=== PATIENT | female | born 1960 | race Caucasian/White ===

== ENCOUNTER 2016-09-28 11:04 | Inpatient (IN) ==
[2016-09-28] MEDS ORDERED: NORCO-7.5 PO PRN (20:26)
[2016-09-28 20:55] LABS: MANUAL DIFF NEEDED? NO
[2016-09-28 20:58] LABS: BASO% 0.6 % (0.0-0.8); EOS# 0.21 X1000 (0.0-0.7); EOS% 2.5 % (0.0-10.0); HEMATOCRIT 40.4 % (37.0-47.0); LYMPH# 2.88 X1000 (1.2-3.4); LYMPH% 33.6 % (20.5-51.1); MCHC 34.7 g/dL (33-37); MCV 89.4 FL (81-99); MONO# 0.82 X1000 (0.11-0.59); MONO% 9.6 % (1.7-9.3); MPV 9.8 FL (7.4-10.4); NEUT% 53.7 % (42.2-75.2); PLT 351 X1000 (130-400); RBC 4.52 XMIL (4.2-5.4)
[2016-09-28 21:16] LABS: AGAP 16; BUN 16 mg/dL (8-22); CALCIUM 9.5 mg/dL (8.8-10.2); CHLORIDE 99 mmol/L (98-107); COSMO 284; POTASSIUM 3.2 mmol/L (3.5-5.1); SODIUM 141 mmol/L (136-145); TCO2 26 mmol/L (25-35)
[2016-09-28 21:18] LABS: CK PROFILE 200 U/L (24-173)
--- NOTE | 2016-09-28 21:22 | Diag Imaging Result Doc PS360 ---
EXAM: CHEST-2 VIEWS INDICATION: SOB TECHNIQUE: PA and lateral COMPARISON: 03/22/2016 FINDINGS: The lungs are grossly clear. There is no discrete pleural fluid collection. The cardiomediastinal silhouette and central vasculature are grossly unremarkable. There are stable metallic clips projecting over the left chest wall. IMPRESSION: No evidence of acute pathology. Electronically signed by Rinku Carias 09/28/2016 9:20 PM
[2016-09-28 21:41] LABS: CK INDEX 1.4 (0.0-2.5); CK-MB 2.85 ng/mL (0.0-5.0)
[2016-09-28] MEDS ORDERED: KLOR-CON PO ONE (22:07)
[2016-09-28] MEDS ORDERED: LIPITOR PO ONE (22:07)
[2016-09-28] MEDS ORDERED: TYLENOL PO PRN (22:11)
--- NOTE | 2016-09-28 22:42 | HISTORY AND PHYSICAL ---
SUBJECTIVE: Intermittent chest pain for the last 2 weeks. HISTORY OF PRESENT ILLNESS: She is a 55-year-old, pleasant white female who was evaluated in my office for chest pain. She had a cardiac stress test done. It was read as perfusion defect in the anterior wall. Ejection fraction is normal. During the stress test patient developed exertional chest pain but no substantial EKG changes. Given the risk factors she has been admitted to the hospital for left heart catheterization. Dr. Gen Leal was notified. PAST MEDICAL HISTORY: Left breast stage I lumpectomy followed by radiation, depression, metabolic syndrome, endometrial cancer status post hysterectomy by Dr. Roman in 2016, hypertension, hypothyroidism, hyperlipidemia, left carotid artery stenosis, type 2 diabetes. PAST SURGICAL HISTORY: Left breast lumpectomy followed by radiation, appendectomy, hysterectomy, tubal ligation. MEDICATIONS: Lipitor 40 mg daily, benazepril/hydrochlorothiazide 20/25 daily, Celexa 20 daily, metformin 500 p.o. b.i.d., Synthroid 162 mcg daily. ALLERGIES: Not known. SOCIAL HISTORY: , 2 kids, homemaker. Lives in [place]. No smoking. No alcohol. No drug abuse. FAMILY HISTORY: Father is 81 with COPD and atrial fibrillation. Mom has hypertension. Sister had a stroke and bilateral hip replacements. HEALTH MAINTENANCE: Mammography 09/2016, DEXA scan 09/2016, colonoscopy [address] Abdi. RECENT LABORATORY WORKUP: In my office on 09/14/2016. Patient has hypothyroidism, A1c is 6.5, and hyperlipidemia. She also had hyperuricemia. REVIEW OF SYSTEMS: HEENT: No headache. No vision problem. No earache. No sore throat. Neck: No goiter. No lymphadenopathy. Subtle bruit on the left side on the carotid. Cardiopulmonary: Chest pain intermittent. No shortness of breath, PND, orthopnea, exertion related. Breasts: No lumps in the breast. Gastrointestinal: No nausea, vomiting, abdominal pain. Genitourinary: No history of hesitancy, frequency. Extremities: No swelling of feet. No joint pains. Neurologic Examination: No focal symptoms or weakness. PHYSICAL EXAMINATION: VITAL SIGNS: Stable. PMI is 35. HEENT EXAMINATION: Within normal limits. NECK: Supple. No lymphadenopathy. No goiter. CHEST: Clear to auscultation. HEART: Sounds are regular. ABDOMEN: Belly is soft, nontender. Good bowel sounds. No masses palpable. EXTREMITIES: No peripheral edema or cyanosis. NEUROLOGICAL: No obvious neurological deficits noted. INVESTIGATIONS: EKG: Normal sinus, nothing acute. CBC is normal. SMA 7, potassium 3.2. Cardiac enzymes: proBNP was normal. Chest x-ray: No acute disease noted except metallic clips projecting over the left chest wall. ASSESSMENT AND PLAN: 1. A 55-year-old white female admitted to the hospital with exertional chest pain, positive nuclear perfusion scan, recurrent chest pain. Admitted to the hospital for left heart catheterization. 2. Hypokalemia. Replace the potassium. 3. Type 2 diabetes. A1c is 6.5. Hold the metformin. 4. Hyperlipidemia on Lipitor. 5. Hypothyroidism on Synthroid. 6. Stage I breast cancer on the left as well as endometrial cancer was stable. 7. Dr. Gen Leal was notified. 8. Reconcile home medications. cc: Brenton Simpson MD MTDD
[2016-09-28] MEDS: NITROGLYCERIN TOP SCH (23:03)
--- NOTE | 2016-09-29 05:24 | EKG Report ---
Test Performed on : 09/28/2016 9:05:15 PM Test Reason : chest pain Blood Pressure : / mmHG Vent. Rate : 085 BPM Atrial Rate : 085 BPM P-R Int : 128 ms QRS Dur : 074 ms QT Int : 388 ms P-R-T Axes : 005 -03 089 degrees QTc Int : 461 ms Normal sinus rhythm. Left ventricular hypertrophy with repolarization abnormality Abnormal ECG When compared with ECG of 14-SEP-2016 12:33, QT has shortened Confirmed by John Horton MD ([id number]) on 09/29/2016 7:19:24 AM
[2016-09-29] MEDS: NITROGLYCERIN TOP SCH ×2 (06:15→11:51)
[2016-09-29] MEDS ORDERED: PRILOSEC PO SCH (07:00)
[2016-09-29] MEDS ORDERED: PATIENT'S OWN MED PO SCH (09:00)
[2016-09-29] MEDS ORDERED: LEXAPRO PO SCH (09:00)
[2016-09-29] MEDS ORDERED: LOTENSIN PO SCH (09:00)
[2016-09-29] MEDS ORDERED: TOPROL XL PO SCH (11:00)
--- NOTE | 2016-09-29 11:18 | CONSULTATION ---
DATE OF CONSULTATION: 09/29/2016 INDICATION: Chest pain. HISTORY OF PRESENT ILLNESS: Ms. Duran is a 55-year-old white female with a recent diagnosis of diabetes and chronic diagnoses of hyperlipidemia and hypertension. She was evaluated in Dr. Simpson's office for chest pain. At that time she had myocardial perfusion imaging which showed a moderate intensity, small-sized reversible defect in the anterior apical, as well as apical portions of the left ventricle. She was admitted for further evaluation. On questioning, the patient reports that she has had some amount of chest discomfort that has been present for years. It is occasionally exertional but also can be at rest. It is a tightness and it does not radiate. She has no diaphoresis. No nausea or vomiting associated with it. She thinks that she has had a few more episodes recently in the last few weeks and some of these episodes have been more intense. These episodes last for usually under 5 minutes. PAST MEDICAL HISTORY: 1. Significant for breast cancer treated with a lumpectomy as well as axillary node dissection and radiation. This was on the left side. 2. Hypertension. 3. Hyperlipidemia. 4. Recent development of diabetes. 5. Carotid artery stenosis on the left. 6. Hypothyroidism. SOCIAL HISTORY: She is . She lives in [place]. No alcohol. No tobacco. No illicit drugs. FAMILY HISTORY: Her father is 81 with a history of COPD and atrial fibrillation. Mom has a history of hypertension. Sister has a history of stroke and bilateral hip replacements. REVIEW OF SYSTEMS: A 10 system review of systems is negative except for those things mentioned in the HPI. PHYSICAL EXAMINATION: Vital signs: She is afebrile. Heart rate is 78, blood pressure 156/84. General: She is in no acute distress. HEENT: Oropharynx is moist. Normal dentition. Her eye examination shows pink conjunctivae, white sclerae. Neck: Examination shows no obvious thyromegaly or thyroid tenderness. Cardiovascular: She is in a regular rate and rhythm. She has no obvious murmurs. She has no S3 present. She has no lower extremity edema. Chest: Clear bilaterally. She has no increased work of breathing. Abdomen: Soft, nontender, nondistended. She has no obvious organomegaly. Skin Exam: Warm and dry throughout without any rashes. Neurological: Moving all extremities well. Cranial nerves 2 through 12 are intact without any sensation deficits. Psychiatric: She is alert, oriented, pleasant. She has normal mood and affect. PERTINENT DATA: Nuclear scan as detailed above in the HPI. Her white count is 8.6, hematocrit 40, platelet count 351,000. Her sodium is 141, potassium 3.2, BUN 16, creatinine 0.8. Cardiac enzymes negative. ProBNP is 51. ASSESSMENT: 1. Symptoms of chest pain that patient has been experiencing for years with typical and atypical features with some escalation over the last couple of weeks, potentially indicating an unstable pattern. 2. Hypertension. 3. Diabetes. 4. Hyperlipidemia. PLAN: We will proceed with cardiac catheterization based on her defect as well as her escalating symptoms. I will try to add in a beta-hamida today. We will check lipids. I will give her a liquid diet this morning as if we are able to get to her case today it will likely be a later case in the afternoon. She is already on aspirin therapy and she is on an SALINA inhibitor presently. cc: MD Brenton Wadsworth MD
[2016-09-29] MEDS: ASPIRIN PO SCH ×2 (11:51→11:57)
[2016-09-29] MEDS ORDERED: HEPARIN 1000 UNITS/NS 2,000 UNIT/1,000 ML IV.SOLN ONE (16:02)
[2016-09-29] MEDS ORDERED: NS 1,000 ML ONE (16:17)
[2016-09-29] MEDS ORDERED: CLAVE TWINSITE 32 IN 11959 ONE (16:17)
[2016-09-29] MEDS ORDERED: VERSED ONE (16:17)
[2016-09-29] MEDS ORDERED: DILAUDID ONE (16:17)
[2016-09-29] MEDS ORDERED: ANESTHESIA PB SET 88 IN 5742 ONE (16:17)
--- NOTE | 2016-09-29 17:38 | CARDIAC CATH REPORT ---
PROCEDURE NAME: - INDICATION FOR PROCEDURE: Chest pain that seems to be escalating in nature recently, suggesting unstable angina with an abnormal perfusion scan showing ischemia in the distal anterior wall. PROCEDURES PERFORMED: 1. Left heart catheterization. 2. Selective coronary angiography. 3. Left ventriculogram. PROCEDURE IN DETAIL: Ms. Duran was brought to the catheterization laboratory in fasting state. Informed consent was obtained. She was prepped in usual fashion. She was anesthetized over the right radial artery after Elgin's test was proved adequate. A 5-Rwandan sheath was placed via true Seldinger technique. Radial cocktail was administered and catheters were introduced. Hemodynamic measurements made of the ascending thoracic aorta and coronary angiography was performed in multiple views using JL3.5 and JR4 diagnostic catheters. A left heart catheterization and left ventriculogram was performed using the JR4. At the conclusion of the procedure , a TR band was left inflated at 11 mL of air. Good capillary refill. Good hemostasis. 60 mL of IV contrast, 5 and 10 mL of blood loss. No apparent complications. FINDINGS: 1. Left main appears normal. 2. Left anterior descending appears normal in the proximal and mid vessel. In the midportion of the distal vessel, the vessel is quite small and appears to have severe small vessel disease and is essentially occluded. 3. Circumflex originates from the left main. It appears normal throughout its course. 4. Right coronary originates from the right coronary cusp. Minimal luminal irregularities are noted throughout this vessel with a right dominant circulation. 5. Left ventriculogram demonstrates an EF of 65% to 70% with normal wall motion. 6. Aortic blood pressure is 155/91 with a mean of 119. 7. Left ventricle pressure 146/10 with an LVEDP of 15. ASSESSMENT: Ms. Duran is a 55-year-old female with recent onset of diabetes and history of hypertension and hyperlipidemia. She has episodes of chest pain that have been going on for years, but seemed to have escalated over the last few weeks. She had evidence for ischemia in the distal anterior wall. PLAN: She has small vessel disease in the distal LAD that does not appear to be amenable to any intervention. Would recommend continued medical therapy. I have discontinued her nitroglycerin paste and placed her on Norvasc 2.5 mg daily. From my standpoint, she could potentially go home 1 hour after her TR band is off. I would continue to titrate medications. She will followup with me in the office in 1 month. cc: MD Brenton Wadsworth MD MTDD
[2016-09-29] MEDS ORDERED: ZOFRAN IV PRN (19:31)
[2016-09-29 21:24] VITALS: BP 161/74
--- NOTE | 2016-09-29 22:50 | DISCHARGE SUMMARY ---
ADMISSION DATE: 09/28/2016 DISCHARGE DATE: 09/29/2016 DISCHARGING DIAGNOSIS: Chest pain due to distal left anterior descending lesion. SECONDARY DIAGNOSIS: 1. Carcinoma, breast cancer left breast. Status post lumpectomy followed by radiation. 2. Metabolic syndrome. 3. Depression. 4. Endometrial cancer status post hysterectomy. 5. Hypertension. 6. Hypothyroidism. 7. Hyperlipidemia. 8. Left carotid artery stenosis. 9. Type 2 diabetes. CONSULTANTS: Dr. Gen Leal. PROCEDURES: Left heart catheterization. FINDINGS: Distal LAD lesion not amenable to revascularization. BRIEF HISTORY: Please see the H and P that was done on 09/28/2016. In brief, she is a 55-year- old, pleasant white female, basically admitted to the hospital with operative evaluation of exertional chest pain with positive symptoms on the treadmill along with nuclear medicine defect in the anterior wall. EF was normal. Patient also getting intermittent chest pains which are atypical. As a result of crescendo pattern, admitted to the hospital for left heart catheterization. HOSPITAL COURSE: The patient was pain free. Given aspirin and nitroglycerin paste and morphine as needed. Followup EKG was unremarkable. Potassium was low which was replaced. Dr. Gen Leal was consulted who did a left heart catheterization with above findings. Continue on medical management. Laboratory: CBC is normal. SMA7 is normal. Cardiac enzymes, ProBNP were normal. Patient had a recent outpatient laboratory workup in my office. Chest x-ray: No definitive pathology noted. DISCHARGE INSTRUCTIONS FOLLOWS: 1. Lexapro 20 daily. 2. Lotensin 20 daily. 3. Lipitor 40 daily. 4. Aspirin 80 mg daily. 5. Natural thyroid 162.5 mg before the meals in the morning once daily. 6. Metformin 500 p.o. b.i.d. 7. Metoprolol 25 p.o. once daily. 8. Follow up in my office in 2 weeks. cc: MD Gen Hines MD
[2016-09-30] MEDS ORDERED: NORVASC PO SCH (09:00)
== END 2016-09-29 21:06 | disposition home or self-care (01) ==
LOC: DIRADM 11:04 → 3N 18:18 → 3S 09-29 17:43
PROVIDERS: ADMIT Internal Medicine; ATTEND Internal Medicine